=== PATIENT | male | born 1960 ===

== ENCOUNTER 2025-06-23 09:29 | Outpatient (CLI) | payer OTHER | END 2025-06-23 09:30 | disposition home or self-care (01) | LOC: SCSMRI 09:29 | PROVIDERS: ATTEND Internal Medicine | DX: M54.51 Vertebrogenic low back pain (principal); M48.061 Spinal stenosis, lumbar region without neurogenic claudication; M48.07 Spinal stenosis, lumbosacral region | CPT/HCPCS: 72148 ==